=== PATIENT | male | born 1970 | race Caucasian/White ===

== ENCOUNTER 2024-04-28 12:47 | Emergency (ER) | payer BC, SELFPAY ==
[2024-04-28] VITALS (15 sets, daily range): BP systolic 101–193; BP diastolic 62–156; BMI 47.5
--- NOTE | 2024-04-28 13:00 | EDRN ---
the pt was brought to ED Bed #11 from triage, the pt is in SVT in the 180-190's, Shawanda LOPEZ currently at the pts bedside, staff attempting to place PIV while the pt is attempting to bare down
--- NOTE | 2024-04-28 13:03 | EDRN ---
pads placed on the pt per providers request
[2024-04-28] MEDS: ADENOCARD 6 MG IV (13:08)
--- NOTE | 2024-04-28 13:09 | EDRN ---
Adenosine 6mg administered, [facility] at the pts bedside
[2024-04-28] MEDS: ADENOCARD 12 MG IV ×2 (13:11→13:27)
--- NOTE | 2024-04-28 13:12 | EDRN ---
Adenosine 12mg administered, [facility] at the pts bedside
--- NOTE | 2024-04-28 13:14 | ED.GENMED ---
History of Present Illness
<Shawanda Martinez PA-C - Last Filed: 04/28/24 21:16>
General
Chief Complaint: Heart Rate Problem
Source: patient
Time Seen by Provider: 04/28/24 12:57
History of Present Illness
History of Present Illness:
54yoM with a history of SVT and type 2 diabetes presenting with his for evaluation of palpitations. Patient was sitting at his desk about 2 hours ago when he started to experience 'tunnel vision' and his heart started to race. Symptoms are
identical to his previous episodes of SVT. He tried vagal maneuvers at home without success. Patient denies any chest pain, shortness of breath, syncope. He follows with Dr. Booth and is currently on metoprolol.
Past History
<Shawanda Martinez PA-C - Last Filed: 04/28/24 21:16>
Past History
ED Past Medical History: Arrthythmia, NIDDM and Other (SVT)
ED Past Surgical History: Bowel resection and Cholecystectomy
Social History
Tobacco: Non-smoker
Alcohol: None
Drug: None
Personal:
Living: with family
Employment: Employed
Family History
Family History: Other (Noncontributory)
Phy Exam
<Shawanda Martinez PA-C - Last Filed: 04/28/24 21:16>
Physical Exam
Physical Exam:
Appears uncomfortable, non-toxic
General Physical Exam
General Skin: warm and dry
General Habitus: normal
General Mental: alert
Cardiovascular Exam
Cardiovascular Exam: no edema, tachycardia and other (HR in 190s)
Pulmonary Exam
Pulmonary Exam: lungs clear, no respiratory distress, no crackles and no wheezing
[place] Coma Scale
Eye Opening: Spontaneous
Verbal Response: Oriented
Motor Response: Obeys Commands
GCS Total Score: 15
Skin Exam
Skin Exam: normal color and warm/dry
Psychiatric Exam
Psychiatric Exam: normal mood/affect
<Jaymie Longoria DO - Last Filed: 04/28/24 14:30>
[place] Coma Scale
GCS Total Score: 15
Course
<Shawanda Martinez PA-C - Last Filed: 04/28/24 21:16>
Orders/Labs/Results
Orders:
Orders
04/28/24 12:48
ECG [Electrocardiogram (*1)] Urgent
Reason for Study: Tachycardia
EKG- Treatment ONCE
04/28/24 12:59
Adenosine [Adenocard] 12 mg .ROUTE .STK-MED ONE
04/28/24 13:07
EKG [Electrocardiogram (*1)] Urgent
Reason for Study: Tachycardia
04/28/24 13:08
EKG- Treatment ONCE
Adenosine [Adenocard] 6 mg IV NOW STA
04/28/24 13:10
Adenosine [Adenocard] 6 mg .ROUTE .STK-MED ONE
04/28/24 13:11
Adenosine [Adenocard] 12 mg IV NOW STA
04/28/24 13:12
Complete Blood Count/With Diff Urgent
04/28/24 13:15
0.9% Sodium Chloride 1000 ml [Nss] 1,000 ml IV BOLUS
04/28/24 13:19
Magnesium Sulfate 2 Gram/50 ml [Magnesium Sulfate] 2 gram in 50 ml IV NOW
04/28/24 13:24
Adenosine [Adenocard] 12 mg .ROUTE .STK-MED ONE
Adenosine [Adenocard] 12 mg IV NOW STA
04/28/24 13:40
Basic Metabolic Panel Urgent
TSH Reflex To Free T4 Urgent
04/28/24 15:47
Magnesium Urgent
Potassium Urgent
Abnormal Lab Results
04/28/24 04/28/24 04/28/24
13:12 13:40 15:47
WBC 12.9 H 10^3/uL
(4.8-10.8)
Abs Immat Gran (auto) 0.1 H 10^3/uL
(0-0.05)
Absolute Neuts (auto) 9.2 H 10^3/uL
(1.4-6.5)
Absolute Monos (auto) 0.8 H 10^3/uL
(0.1-0.6)
BUN 21 H mg/dl
(9-20)
Glucose 182 H mg/dl
(70-99)
Magnesium 2.4 H mg/dl
(1.6-2.3)
04/28/24 13:12
04/28/24 15:47
Vital Signs
Initial and Last Documented VS:
Initial Vital Signs
Temp Pulse Resp BP Pulse Ox
97.7 F 187 20 120/79 98
04/28/24 12:50 04/28/24 12:50 04/28/24 12:50 04/28/24 12:50 04/28/24 12:50
Last Documented Vital Signs
Temp Pulse Resp BP Pulse Ox
98.5 F 96 14 136/81 99
04/28/24 13:04 04/28/24 16:00 04/28/24 16:00 04/28/24 15:00 04/28/24 15:00
<Jaymie Longoria, DO - Last Filed: 04/28/24 14:30>
Orders/Labs/Results
Orders:
Orders
04/28/24 12:48
ECG [Electrocardiogram (*1)] Urgent
Reason for Study: Tachycardia
EKG- Treatment ONCE
04/28/24 12:59
Adenosine [Adenocard] 12 mg .ROUTE .STK-MED ONE
04/28/24 13:07
EKG [Electrocardiogram (*1)] Urgent
Reason for Study: Tachycardia
04/28/24 13:08
EKG- Treatment ONCE
Adenosine [Adenocard] 6 mg IV NOW STA
04/28/24 13:10
Adenosine [Adenocard] 6 mg .ROUTE .STK-MED ONE
04/28/24 13:11
Adenosine [Adenocard] 12 mg IV NOW STA
04/28/24 13:12
Complete Blood Count/With Diff Urgent
04/28/24 13:15
0.9% Sodium Chloride 1000 ml [Nss] 1,000 ml IV BOLUS
04/28/24 13:19
Magnesium Sulfate 2 Gram/50 ml [Magnesium Sulfate] 2 gram in 50 ml IV NOW
04/28/24 13:24
Adenosine [Adenocard] 12 mg .ROUTE .STK-MED ONE
Adenosine [Adenocard] 12 mg IV NOW STA
04/28/24 13:40
Basic Metabolic Panel Urgent
TSH Reflex To Free T4 Urgent
04/28/24 15:47
Magnesium Urgent
Potassium Urgent
Abnormal Lab Results
04/28/24 04/28/24 04/28/24
13:12 13:40 15:47
WBC 12.9 H 10^3/uL
(4.8-10.8)
Abs Immat Gran (auto) 0.1 H 10^3/uL
(0-0.05)
Absolute Neuts (auto) 9.2 H 10^3/uL
(1.4-6.5)
Absolute Monos (auto) 0.8 H 10^3/uL
(0.1-0.6)
BUN 21 H mg/dl
(9-20)
Glucose 182 H mg/dl
(70-99)
Magnesium 2.4 H mg/dl
(1.6-2.3)
04/28/24 13:12
04/28/24 15:47
Vital Signs
Initial and Last Documented VS:
Initial Vital Signs
Temp Pulse Resp BP Pulse Ox
97.7 F 187 20 120/79 98
04/28/24 12:50 04/28/24 12:50 04/28/24 12:50 04/28/24 12:50 04/28/24 12:50
Last Documented Vital Signs
Temp Pulse Resp BP Pulse Ox
98.5 F 96 14 136/81 99
04/28/24 13:04 04/28/24 16:00 04/28/24 16:00 04/28/24 15:00 04/28/24 15:00
<Shawanda Martinez PA-C - Last Filed: 04/28/24 21:16>
MDM/Problems Addressed
Differential Diagnosis Includes:
54yoM here with palpitations x 2 hours. Hx of SVT. Heart rate 187 on arrival. BP stable. Patient immediately assessed at bedside and he is non-toxic appearing. EKG confirms SVT with ST/T wave changes which are likely rate related. Differential
diagnosis includes but is not limited to: SVT, electrolyte abnormality, thyroid dysfunction
Initial ED plan: IV access obtained. CBC, CMP, magnesium, TSH ordered. Vagal maneuvers attempted without success. IV adenosine ordered.
<Shawanda Martinez PA-C - Last Filed: 04/28/24 21:16>
*EKG
Interpreted by ED Provider?: Yes
EKG Intrepretation Date: 04/28/24
Heart Rate: 186
Rate: tachycardiac
Rhythm: SVT
Interval: normal interval
QRS Pattern: normal QRS
Ischemia: ST depression (ST depressions in inferolateral leads)
*Critical Care Note
Total Time (30-74mins, 75-104mins- exclusive of procedures): 35
<Shawanda Martinez PA-C - Last Filed: 04/28/24 21:16>
Update Note
Update Note:
Patient initially given 6mg of adenosine with temporary conversion to NSR for a few seconds. Patient went immediately back into SVT. 12mg adenosine was then administered. He converted to NSR for 1-2 minutes and went back into SVT. A second dose of
12mg adenosine as well as IV magnesium ordered. Patient responded well to second dose of adenosine and he is sustaining NSR.
Patient observed for several hours and was reassessed several times. Patient remains in NSR and is asymptomatic. Labs unremarkable including normal electrolytes and TSH. Patient is stable for discharge. He was advised to call his natural gas shothole driller
tomorrow for follow-up. ED return precautions discussed. He expressed understanding is agreeable to plan. He was discharged stable condition.
ED Attending Note
<Shawanda Martinez PA-C - Last Filed: 04/28/24 21:16>
-
Portions of this chart may have been created with voice recognition software.� Occasional wrong word or��sound alike� substitutions may have occurred due to the inherent limitations of voice recognition software.
<Jaymie Longoria DO - Last Filed: 04/28/24 14:30>
ED Attending Note
Patient seen and examined by attending physician: Yes
I performed the substantive portion of visit, reviewed & personally made and approve the management plan that is documented in note by myself or JHON.: Yes
I performed a history and physical exam of patient and discussed management with resident, I reviewed resident's note and agree with documented findings and plan of care.: Yes
ED Attending Note:
54-year-old male with prior history of SVT presenting to the emergency department for palpitations and suspected SVT. Patient reports last episode of SVT was in 2018. Denies known cardiac issues. Denies exertional onset of symptoms. Vital signs
arrival significant for tachycardia.
On exam, patient is resting comfortably, no acute distress. Patient initially seen by physician marketing operations assistant. EKG reviewed, confirmed SVT. Patient had 6 mg of adenosine with subsequent sinus rhythm, however went back into SVT. Additional 12 mg
administered, however presenting to SVT after few minutes. On reassessment, remains stable from a hemodynamic perspective, normal blood pressure. Will repeat adenosine 12 mg. Plan for laboratory analysis.
14:00 - Additional dose of adenosine, remains in sinus rhythm. Will continue to closely monitor. Plan for outpatient cardiology follow-up
Discharge Plan
Departure
Patient Disposition: Home (Routine Discharge)
Date of Disposition: 04/28/24
Time of Disposition: 16:13
Patient with high blood pressure during this ER visit?: No
Discharge Problem:
SVT (supraventricular tachycardia)
Instructions: Supraventricular tachycardia (SVT)
Prescriptions:
No Action
aspirin [Aspir-Low] 81 MG tablet,delayed release (DR/EC)
81 mg PO DAILY
metoprolol succinate 50 MG tablet extended release 24 hr
50 mg PO DAILY Qty: 90 0RF
metformin 500 mg Tablet
500 mg PO BID
atorvastatin [Lipitor] 20 mg Tablet
20 mg PO DAILY
glipizide 5 mg Tablet
5 mg PO BID
dapagliflozin propanediol [Farxiga] 10 mg Tablet
10 mg PO HS
Ozempic 2 mg/dose (8 mg/3 mL) Pen Injector
2 mg SC QWEEK
Referrals:
Stephen Martinez DO [Family Provider] -
Activity Restrictions/Additional Instructions:
Continue taking your metoprolol.
Please call your natural gas shothole driller tomorrow to schedule a follow-up. Return to the ER immediately with any new or worsening symptoms.
Interventions
Interventions:
*Risk Screen - Suicide Last Done: 04/28/24 12:50
*General Assessment Last Done: 04/28/24 13:04
*Neglect/Abuse Screening Last Done: 04/28/24 12:50
ED- Fall Risk Assessment Last Done: 04/28/24 13:04
*ED COVID-19 Vaccine History Last Done: 04/28/24 13:04
*Nursing Disposition Last Done: 04/28/24 16:25
ED- Cardiac Assessment Last Done: 04/28/24 13:04
ED- Pulmonary Assessment Last Done: 04/28/24 13:04
Discharge Date and Time
Discharge Date/Time: 04/28/24 16:26
Print Language: TAIWANESE
[2024-04-28] MEDS: NSS 1000 IV (13:16)
--- NOTE | 2024-04-28 13:18 | EDRN ---
the pt converted to NSR in the 's then went back to SVT in the 180-190's, Shawanda LOPEZ notified
--- NOTE | 2024-04-28 13:18 | EDRN ---
Dr. Longoria at the pts bedside
[2024-04-28 13:19] LABS: % Basophils 0.3 % (0-2); % Eosinophils 0.8 % (0-6); % Immature Granulocytes 0.5 % (0-0.5); % Lymphocytes 20.9 % (20.5-51.1); % Monocytes 6.3 % (1.7-9.3); % Neutrophils 71.2 % (42.2-75.2); Absolute Eosinophils 0.1 10^3/uL (0-0.7); Absolute Immature Granulocytes 0.1 10^3/uL (0-0.05); Absolute Lymphocytes 2.7 10^3/uL (1.2-3.4); Absolute Monocytes 0.8 10^3/uL (0.1-0.6); Absolute Neutrophils 9.2 10^3/uL (1.4-6.5); Hematocrit 46.3 % (39.0-52.0); Hemoglobin 15.4 g/dL (13.0-18.0); Mean Corp Hgb Conc. 33.3 g/dL (33.0-37.0); Mean Corpuscular Hgb 28.4 pg (27.0-31.0); Mean Corpuscular Volume 85.4 fL (80.0-94.0); Mean Platelet Volume 9.6 fL (7.4-10.4); Nucleated Red Blood Cells % 0 % (-); Platelet Count 231 10^3/uL (130-400); Red Blood Cell Count 5.42 10^6/uL (4.70-6.10); Red Cell Dist. Width 13.5 % (11.5-14.5); White Blood Cell Count 12.9 10^3/uL (4.8-10.8)
[2024-04-28] MEDS: MAGNESIUM SULFATE 50 IV (13:21)
--- NOTE | 2024-04-28 13:28 | EDRN ---
another 12mg of Adenosine was administered, the pt converted to NSR at 100bpm, Dr. Yeung and Shawanda OLPEZ at the pts bedside, EKG being performed
--- NOTE | 2024-04-28 13:34 | EDRN ---
the pt is currently in NSR in the , VS L
[2024-04-28 14:20] LABS: Blood Urea Nitrogen 21 mg/dl (9-20); Calcium 8.8 mg/dl (8.4-10.2); Carbon Dioxide 22 mmol/L (22-30); Chloride 103 mmol/L (98-107); Estimated Creatinine Clearance > 125 ml/min; Glucose 182 mg/dl (70-99); Sodium 135 mmol/L (135-145); eGFR > 60.00
[2024-04-28 14:34] LABS: TSH Reflex To Free T4 2.74 uIU/ml (0.47-4.68)
[2024-04-28 16:07] LABS: Magnesium 2.4 mg/dl (1.6-2.3); Potassium 4.5 mmol/L (3.5-5.1)
== END 2024-04-28 16:26 | disposition home or self-care (01) ==
LOC: EMR 12:47
PROVIDERS: Physician Assistant; EMERGENCY PHYSICIAN Student in an Organized Health Care Education/Training Program; FAMILY PHYSICIAN Family Medicine
DX: I47.10 Supraventricular tachycardia, unspecified (principal); E11.9 Type 2 diabetes mellitus without complications; Z90.49 Acquired absence of other specified parts of digestive tract
CPT/HCPCS: 96365; 96375; 99284; 80048; 83735; 84132; 84443; 85025; 93005; J0153